=== PATIENT | male | born 1955 | race Caucasian/White ===

== ENCOUNTER 2021-06-17 04:08 | Emergency (ER) | payer MEDICARE, OTHER ==
[2021-06-17] MEDS ORDERED: Sodium Chloride 0.9% 2.5 ML Syringe FLUSH PRN (04:29)
[2021-06-17] MEDS ORDERED: Sodium Chloride 0.9% 10 ML Syringe FLUSH PRN (04:29)
--- NOTE | 2021-06-17 04:35 | EDM.PDOC ---
ED HPI GENERAL MEDICAL PROBLEM - General Chief Complaint: CPR in Progress Stated Complaint: EMS Time Seen by Provider: 06/17/21 04:20 - History of Present Illness INITIAL COMMENTS - FREE TEXT/NARRATIVE: History of present illness: [] The patient complained of chest pain. EMS said he had a STEMI. They did not have a paper in their recorder so they do not have a recording. He said he was on the monitor. When he came in and got placed in the stretcher he was unconscious with a Glascow coma score of 3. Before I was able to prepare to intubate him he lost his pulse started agonal respirations. Review of systems: As per history of present illness and below otherwise all systems reviewed and negative. Past medical history: As per history of present illness and as reviewed below otherwise noncontributory. Surgical history: As per history of present illness and as reviewed below otherwise noncontributory. Social history: No reported history of drug or alcohol abuse. Family history: As per history of present illness and as reviewed below otherwise noncontributory. Physical exam: Constitutional - well developed, well-nourished and in no acute distress HEENT - normocephalic, no evidence of trauma - external nose and mouth normal - no mass in neck and no JVD - mucosae moist EYES - full EOM, PERRL but sluggish, no icterus - no evidence of inflammation, injection, or drainage Respiratory - no respiratory distress, equal bilateral expansion, lungs clear to auscultation and no abnormal lung sounds. Became agonal respirations very quickly after he arrived here Cardiovascular - Regular Rhythm with S1 and S2 appreciated and no murmur, gallop or rub. Lost his pulse very quickly after he arrived here GI - abdomen soft without distension or organomegaly - normal bowel sounds - no guard or rebound Musculoskeletal no gross deformity of long bones or joints - no tenderness, swelling or edema Neurologic -arrival Glascow coma score 3. Psychiatric -unable to obtain Hematologic - No petechiae or purpura - mucosa appropriate color and sclera not pale - normal nail bed color and refill Integument - no rash or evidence of trauma - normal turgor Diagnostics: [] Therapeutics: [] Impression: [] Plan: [] Definitive disposition and diagnosis as appropriate pending reevaluation and review of above. - Related Data Allergies Allergy/AdvReac Type Severity Reaction Status Date / Time No Known Allergies Allergy Verified 06/17/21 04:44 ED ROS GENERAL - Review of Systems Review Of Systems: Unable To Obtain Reason Not Obtained: Unconscious ED EXAM, GENERAL - Physical Exam Exam: See Below Free Text/Narrative:: Physical exam is in the [facility] ED GENERAL MEDICAL PROCEDURES - Endotracheal Intubation Time of Intubation: 04:05 ET Intubation Indication: Respiratory Failure, Airway Protection, Cardiac Arrest Preparation: Suction, BVM Set Up Airway Assessment: Obese Pre-Oxygenation: Assisted with BVM, 100% FiO2 Placement: Orotracheal Cords Visualized: Yes ETT Size In mm: 8 Number of Attempts: 1 Confirmed By: CO2 Indicator, Bilateral Breath Sounds, Chest Xray Tube Secured By: By RN Course - Orders/Labs/Meds Orders: Active Orders 24 hr Category Date Time Status EKG Documentation Completion [RC] AM Care 06/17/21 04:29 Active Chest 1V Frontal [CR] Stat Exams 06/17/21 04:30 Taken CBC WITH AUTO DIFF [HEME] Stat Lab 06/17/21 04:30 Results COMPREHENSIVE METABOLIC PN,CMP [CHEM] Stat Lab 06/17/21 04:30 Received INR,PT,PROTHROMBIN TIME [COAG] Stat Lab 06/17/21 04:30 Received PTT,PARTIAL THROMBOPLSTIN TIME [COAG] Q6H Lab 06/17/21 04:45 Ordered PTT,PARTIAL THROMBOPLSTIN TIME [COAG] Q6H Lab 06/17/21 10:45 Ordered PTT,PARTIAL THROMBOPLSTIN TIME [COAG] Q6H Lab 06/17/21 16:45 Ordered PTT,PARTIAL THROMBOPLSTIN TIME [COAG] Q6H Lab 06/17/21 22:45 Ordered PTT,PARTIAL THROMBOPLSTIN TIME [COAG] Q6H Lab 06/18/21 04:45 Ordered PTT,PARTIAL THROMBOPLSTIN TIME [COAG] Q6H Lab 06/18/21 10:45 Ordered PTT,PARTIAL THROMBOPLSTIN TIME [COAG] Q6H Lab 06/18/21 16:45 Ordered PTT,PARTIAL THROMBOPLSTIN TIME [COAG] Stat Lab 06/17/21 04:30 Received PTT,PARTIAL THROMBOPLSTIN TIME [COAG] Stat Lab 06/17/21 04:39 Ordered TROPONIN I [CHEM] Stat Lab 06/17/21 04:30 Received Aspirin Med 06/17/21 04:45 Active 300 mg RECTAL DAILY DOPamine/Dextrose 5%-Water [DOPamine in D5W 400 MG/250 Med 06/17/21 04:45 Active ML] 400 mg in 250 ml IV ASDIRECTED Heparin Sodium/0.45% NaCl [Heparin 25,000 Units in 1/2 Med 06/17/21 04:37 Active NS 500 ML] 500 ml IV STAT Sodium Chloride 0.9% [Saline Flush] Med 06/17/21 04:29 Active 10 ml FLUSH ASDIRECTED PRN Sodium Chloride 0.9% [Saline Flush] Med 06/17/21 04:29 Active 2.5 ml FLUSH ASDIRECTED PRN Saline Lock Insert [OM.PC] Stat Oth 06/17/21 04:29 Ordered Medication Orders Aspirin (Aspirin 300 Mg Supp) 300 mg RECTAL DAILY BARRY Heparin Sodium/Sodium Chloride (Heparin 25,000 Units In 1/2 Ns 500 Ml) 500 mls @ 20 mls/hr IV STAT STA Stop: 06/18/21 05:36 Dopamine HCl/Dextrose (Dopamine In D5w 400 Mg/250 Ml) 400 mg in 250 mls @ 22.5 mls/hr IV ASDIRECTED BARRY; Protocol Sodium Chloride (Sodium Chloride 0.9% 10 Ml Syringe) 10 ml FLUSH ASDIRECTED PRN PRN Reason: Keep Vein Open Sodium Chloride (Sodium Chloride 0.9% 2.5 Ml Syringe) 2.5 ml FLUSH ASDIRECTED PRN PRN Reason: Keep Vein Open Labs: Laboratory Tests 06/17/21 Range/Units 04:30 WBC 10.81 (4.0-11.0) K/uL RBC 3.83 L (4.50-5.90) M/uL Hgb 11.5 L (13.0-17.0) g/dL Hct 38.0 (38.0-50.0) % MCV 99.2 H (80.0-98.0) fL MCH 30.0 (27.0-32.0) pg MCHC 30.3 L (31.0-37.0) g/dL RDW Std Deviation 51.0 (28.0-62.0) fl RDW Coeff of Marcus 14 (11.0-15.0) % Plt Count 327 (150-400) K/uL MPV 9.40 (7.40-12.00) fL Add Manual Diff YES Nucleated RBC % 0.8 /100WBC Nucleated RBCs # 0 K/uL Meds: Medications Generic Name Dose Route Start Last Admin Trade Name Zeny PRN Reason Stop Dose Admin Aspirin 300 mg 06/17/21 04:45 Aspirin 300 Mg Supp RECTAL DAILY BARRY Heparin Sodium/Sodium Chloride 500 mls @ 20 mls/hr 06/17/21 04:37 Heparin 25,000 Units In 1/2 Ns 500 Ml IV 06/18/21 05:36 STAT STA Dopamine HCl/Dextrose 400 mg in 250 mls @ 22.5 mls/hr 06/17/21 04:45 Dopamine In D5w 400 Mg/250 Ml IV ASDIRECTED BARRY Protocol 5 MCG/KG/MIN Sodium Chloride 10 ml 06/17/21 04:29 Sodium Chloride 0.9% 10 Ml Syringe FLUSH ASDIRECTED PRN Keep Vein Open Sodium Chloride 2.5 ml 06/17/21 04:29 Sodium Chloride 0.9% 2.5 Ml Syringe FLUSH ASDIRECTED PRN Keep Vein Open Discontinued Medications Generic Name Dose Route Start Last Admin Trade Name Zeny PRN Reason Stop Dose Admin Heparin Sodium (Porcine) 4,000 units 06/17/21 04:39 Heparin Sodium 5,000 Units/Ml Vial IVPUSH 06/17/21 04:40 .BOLUS ONE Norepinephrine Bitartrate Confirm 06/17/21 04:51 Norepinephr-0.9% Nacl 4 Mg/250 Administered 06/17/21 04:52 Dose 4 mg in 250 mls @ as directed .ROUTE .STK-MED ONE Tenecteplase 50 mg 06/17/21 04:40 Tenecteplase 50 Mg Kit IV 06/17/21 04:41 STAT STA Protocol Tenecteplase Confirm 06/17/21 04:50 Tenecteplase 50 Mg Kit Administered 06/17/21 04:51 Dose 50 mg .ROUTE .STK-MED ONE - Re-Assessments/Exams Free Text/Narrative Re-Assessment/Exam: 06/17/21 05:01 Patient had CPR from 4 AM to 4:20 AM. Epinephrine given every 3 minutes. Afterwards patient had a good pulse and pressure of 98. Blood pressure dropped and heart rate dropped atropine given dopamine started. Dopamine titrated up twice. Lost his pulse again. CPR done for 10 minutes. Epinephrine repeated. After CPR patient regained his pulse. Discussed with Dr. 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 Patient received aspirin in route. Patient began to breathe again and had a spontaneous pulse with a blood pressure over 100. Patient may arrest in route and flight crew knows this. Helicopters not available. Dr. Givens and Dr. Espinosa of excepted the patient in [place]. informed of the dismal outlook but the possibility that he might be able to have more done in [place]. Patient had hip replacement according the . It was done 26 May. He was on blood thinners briefly afterwards but discharged without them. Patient is borderline diabetic, treated for hypertension, treated for high cholesterol. His sister of a heart attack in her 50s. Free Text/Narrative Re-Assessment/Exam: 06/17/21 05:03 This patient was seen and evaluated during the 2019 SARS-CoV-2 novel coronavirus pandemic period. Community viral transmission is ongoing at time of this encounter and the emergency department is operating under pandemic response procedures. Due to a high probability of clinically significant, life threatening deterioration, the patient required my highest level of preparedness to intervene emergently and I personally spent this critical care time directly and personally managing the patient. This critical care time included obtaining a history; examining the patient; pulse oximetry; ordering and review of studies; arranging urgent treatment with development of a management plan; evaluation of patient's response to treatment; frequent reassessment; and, discussions with other providers. This critical care time was performed to assess and manage the high probability of imminent, life-threatening deterioration that could result in multi-organ failure. It was exclusive of separately billable procedures and treating other patients and teaching time. Total time 60 minutes Departure - Departure Time of Disposition: 05:03 Disposition: DC/Tfer to Acute Hospital 02 Condition: Critical Clinical Impression: STEMI (ST elevation myocardial infarction), Cardiac arrest - Discharge Information Forms: ED Department Discharge - My Orders Last 24 Hours: My Active Orders 06/17/21 04:29 EKG Documentation Completion [RC] AM Sodium Chloride 0.9% [Saline Flush] 10 ml FLUSH ASDIRECTED PRN Sodium Chloride 0.9% [Saline Flush] 2.5 ml FLUSH ASDIRECTED PRN Saline Lock Insert [OM.PC] Stat 06/17/21 04:30 Chest 1V Frontal [CR] Stat CBC WITH AUTO DIFF [HEME] Stat COMPREHENSIVE METABOLIC PN,CMP [CHEM] Stat INR,PT,PROTHROMBIN TIME [COAG] Stat PTT,PARTIAL THROMBOPLSTIN TIME [COAG] Stat TROPONIN I [CHEM] Stat 06/17/21 04:37 Heparin Sodium/0.45% NaCl [Heparin 25,000 Units in 1/2 NS 500 ML] 500 ml IV STAT 06/17/21 04:39 PTT,PARTIAL THROMBOPLSTIN TIME [COAG] Stat 06/17/21 04:45 PTT,PARTIAL THROMBOPLSTIN TIME [COAG] Q6H Aspirin 300 mg RECTAL DAILY DOPamine/Dextrose 5%-Water [DOPamine in D5W 400 MG/250 ML] 400 mg in 250 ml IV ASDIRECTED 06/17/21 10:45 PTT,PARTIAL THROMBOPLSTIN TIME [COAG] Q6H 06/17/21 16:45 PTT,PARTIAL THROMBOPLSTIN TIME [COAG] Q6H 06/17/21 22:45 PTT,PARTIAL THROMBOPLSTIN TIME [COAG] Q6H 06/18/21 04:45 PTT,PARTIAL THROMBOPLSTIN TIME [COAG] Q6H 06/18/21 10:45 PTT,PARTIAL THROMBOPLSTIN TIME [COAG] Q6H 06/18/21 16:45 PTT,PARTIAL THROMBOPLSTIN TIME [COAG] Q6H - Assessment/Plan Last 24 Hours: My Active Orders 06/17/21 04:29 EKG Documentation Completion [RC] AM Sodium Chloride 0.9% [Saline Flush] 10 ml FLUSH ASDIRECTED PRN Sodium Chloride 0.9% [Saline Flush] 2.5 ml FLUSH ASDIRECTED PRN Saline Lock Insert [OM.PC] Stat 06/17/21 04:30 Chest 1V Frontal [CR] Stat CBC WITH AUTO DIFF [HEME] Stat COMPREHENSIVE METABOLIC PN,CMP [CHEM] Stat INR,PT,PROTHROMBIN TIME [COAG] Stat PTT,PARTIAL THROMBOPLSTIN TIME [COAG] Stat TROPONIN I [CHEM] Stat 06/17/21 04:37 Heparin Sodium/0.45% NaCl [Heparin 25,000 Units in 1/2 NS 500 ML] 500 ml IV STAT 06/17/21 04:39 PTT,PARTIAL THROMBOPLSTIN TIME [COAG] Stat 06/17/21 04:45 PTT,PARTIAL THROMBOPLSTIN TIME [COAG] Q6H Aspirin 300 mg RECTAL DAILY DOPamine/Dextrose 5%-Water [DOPamine in D5W 400 MG/250 ML] 400 mg in 250 ml IV ASDIRECTED 06/17/21 10:45 PTT,PARTIAL THROMBOPLSTIN TIME [COAG] Q6H 06/17/21 16:45 PTT,PARTIAL THROMBOPLSTIN TIME [COAG] Q6H 06/17/21 22:45 PTT,PARTIAL THROMBOPLSTIN TIME [COAG] Q6H 06/18/21 04:45 PTT,PARTIAL THROMBOPLSTIN TIME [COAG] Q6H 06/18/21 10:45 PTT,PARTIAL THROMBOPLSTIN TIME [COAG] Q6H 06/18/21 16:45 PTT,PARTIAL THROMBOPLSTIN TIME [COAG] Q6H
[2021-06-17] MEDS ORDERED: Heparin Sodium/0.45% NaCl 500 ML IV STA (04:37)
[2021-06-17] MEDS ORDERED: Heparin Sodium 5,000 Units/ML Vial IVPUSH ONE (04:39)
[2021-06-17] MEDS ORDERED: Tenecteplase 50 MG Kit IV STA (04:40)
[2021-06-17] MEDS ORDERED: DOPamine/Dextrose 5%-Water 400 MG/250 ML BAG IV SCH (04:45)
[2021-06-17] MEDS ORDERED: Aspirin 300 MG Supp RECTAL SCH (04:45)
[2021-06-17] MEDS ORDERED: Tenecteplase 50 MG Kit ONE (04:50)
[2021-06-17 04:55] LABS: BLOOD UREA NITROGEN,BUN 24 mg/dL (7.0-18.0); CARBON DIOXIDE,CO2 15.1 mmol/L (21.0-32.0); CHLORIDE,CL 103 mmol/L (98-107); GLUCOSE RANDOM 395 mg/dL (74-106); POTASSIUM,K 4.3 mmol/L (3.5-5.1); SODIUM,NA 138 mmol/L (136-148)
[2021-06-17] MEDS ORDERED: Propofol 200 MG/20 ML SDV ONE (05:17)
[2021-06-17] MEDS ORDERED: EPINEPHrine 1:10,000 1 MG/10 ML Syringe ONE (06:00)
[2021-06-17] MEDS ORDERED: Adenosine 6 MG/2 ML SDV ONE (06:00)
[2021-06-17] MEDS ORDERED: Atropine 0.1 MG/ML 10 ML Syringe ONE (06:00)
[2021-06-17] MEDS ORDERED: 50% Dextrose in Water 50 ML Syringe ONE (06:00)
--- NOTE | 2021-06-17 06:00 | CR ---
Indication: Endotracheal tube placement. Technique: Chest 1 view. Comparison: November 16, 2019. Findings/Impression: Cardiovascular and mediastinum: Endotracheal tube is 3 cm above the jordan. NG tube is coiled in the gastric fundus. Stable mild cardiomegaly. Pulmonary vasculature is within normal limits. Lungs and pleural space: Lungs are clear. No sign of infiltrate or mass. No sign of pleural effusion. No pneumothorax. Bones and soft tissues: No acute findings. Dictated by Migel Orlando MD @ 06/17/2021 5:58:52 AM (Electronically Signed)
--- NOTE | 2021-06-24 07:00 | PCM.EKG ---
#1 Interpretation EKG Interpretation Comments: EKG performed 11/16/2019 at 4:20 AM shows a sinus rhythm with a heart rate of 98 W[place] interval 152 QT duration 499 axis -[address] elevation ND in the inferior and anterior leads compared to 11/16/2019 this is new. Read as a STEMI impression STEMI
== END 2021-06-17 05:22 ==
LOC: MW.ED 04:08
DX: I46.9 Cardiac arrest, cause unspecified (principal); I21.3 ST elevation (STEMI) myocardial infarction of unspecified site
CPT/HCPCS: 31500; 36415; 36680; 71045; 80053; 81001; 84484; 85025; 85610; 85730; 92950; 92977; 93005; 96365; 99291; J0153; J0171; J0461; J1644; J2704; J3101; U0002; 99285